=== PATIENT | female | born 1985 | race Caucasian/White ===

== ENCOUNTER 2017-11-29 10:20 | Emergency (ER) | payer SELFPAY ==
[~2017-11-29] VITALS: Ht 167.6 cm; Wt 53.1 kg
[2017-11-29 10:20] VITALS: BP_SYST 108
[2017-11-29] MEDS ORDERED: MORPHINE 4 MG/ML INJ. SYRINGE IVP ONE ×3 (10:30→14:15)
[2017-11-29] MEDS ORDERED: NACL 0.9% 1,000 ML IV ONE (10:30)
[2017-11-29] MEDS ORDERED: ONDANSETRON HCL 4 MG/2 ML VIAL IVP ONE ×2 (10:30→14:00)
[2017-11-29] MEDS ORDERED: DIPHENHYDRAMINE INJ 50 MG/ML VIAL IVP ONE ×2 (11:00→14:30)
[2017-11-29 11:02] LABS: MEAN CORPUSCULAR VOLUME 88 fL (79.0-98.0)
[2017-11-29] MEDS ORDERED: DIPHENHYDRAMINE INJ 50 MG/ML VIAL ONE (11:03)
[2017-11-29 11:10] LABS: HEMATOCRIT 32.4 % (36-48); MEAN CORPUSCULAR HEMOGLOBIN 30 pg (27-31); MEAN CORPUSCULAR HGB CONC 34 % (32-36); PLATELET COUNT (AUTO) 305 K/uL (130-430); RED CELL DISTRIBUTION WIDTH 13.9 % (9.0-15.0); WHITE BLOOD COUNT (AUTO) 3.7 K/uL (4.8-10.8)
[2017-11-29 11:16] LABS: CALCIUM 9.5 mg/dL (8.4-11.0); CREATININE 0.54 mg/dL (0.55-1.30); POTASSIUM 3.5 mmol/L (3.5-5.1)
[2017-11-29 11:21] LABS: BILIRUBIN,URINE NEGATIVE (NEGATIVE); BLOOD, URINE NEGATIVE (NEGATIVE); CLARITY/URINE HAZY (CLEAR); COLOR,URINE YELLOW (YELLOW); GLUCOSE,URINE NEGATIVE (NEGATIVE); KETONES,URINE TRACE (NEGATIVE); LEUKOCYTE ESTERASE ,URINE NEGATIVE (NEGATIVE); NITRITE, URINE NEGATIVE (NEGATIVE); PROTEIN URINE NEGATIVE (NEGATIVE); UROBILINOGEN,URINE 0.2 (0.2-1.0)
[2017-11-29 11:27] LABS: TOTAL BILIRUBIN 0.4 mg/dL (0.0-1.0)
[2017-11-29 11:28] LABS: ALBUMIN 4.1 g/dL (3.4-4.8)
[2017-11-29 11:33] LABS: BASOPHILS % (MANUAL) 0 % (0-2); EOSINOPHILS % (MANUAL) 2 % (0-7); LYMPHOCYTES % (MANUAL) 18 % (20-46); MONOCYTES % (MANUAL) 8 % (0-11)
[2017-11-29] MEDS ORDERED: fentaNYL CITRATE/PF 100 MCG/2 ML AMP IVP ONE ×2 (12:15→14:00)
[2017-11-29 15:43] LABS: PROTHROMBIN TIME 9.9 SECS (9.5-12.5)
[2017-11-29 15:55] VITALS: BP_SYST 122
== END 2017-11-29 15:55 | disposition home or self-care (01) ==
LOC: SED 10:20
DX: R10.31 Right lower quadrant pain (principal); D72.819 Decreased white blood cell count, unspecified; D64.9 Anemia, unspecified; Z90.710 Acquired absence of both cervix and uterus; Z88.6 Allergy status to analgesic agent
CPT/HCPCS: 36415; 74176; 76830; 76857; 80053; 81003; 81025; 83605; 84702; 85007; 85027; 85610; 85730; 87040; 96361; 96374; 96375; 96376; 99285; J1200; J2270; J2405; J3010; J7030